=== PATIENT | female | born 1935 | race Caucasian/White ===

== ENCOUNTER 2017-07-15 09:56 | Emergency (ER) | payer MEDICARE, BC ==
[~2017-07-15] VITALS: Ht 160 cm; Wt 61.0 kg
[~2017-07-15 09:56] MED LIST: KEFLEX500 MG PO; NO
[2017-07-15 13:38] LABS: URINE BILIRUBIN - DIPSTICK NEGATIVE (NEGATIVE); URINE BLOOD DIPSTICK NEGATIVE (NEGATIVE); URINE COLOR YELLOW; URINE GLUCOSE - DIPSTICK NEGATIVE (NEGATIVE); URINE KETONE TRACE mg/dL (NEGATIVE); URINE LEUK ESTERASE NEGATIVE (NEGATIVE); URINE NITRITE - DIPSTICK NEGATIVE (Negative); URINE PROTEIN - DIPSTICK NEGATIVE (NEG-TRACE); URINE UROBILINOGEN - DIPSTICK 0.2 E.U./dL (0.2)
[2017-07-15 13:39] LABS: URINE CLARITY HAZY
[2017-07-15 13:53] VITALS: BP 132/84
[2017-07-15] MEDS ORDERED: ULTRAM50 M1 PO (13:55)
== END 2017-07-15 14:10 | disposition home or self-care (01) ==
LOC: ED 09:56
PROVIDERS: Emergency Medicine
PROC: 0RSKXZZ Reposition Left Shoulder Joint, External Approach (ICD-10-PCS; principal; 2017-07-15)
DX: S00.93XA Contusion of unspecified part of head, initial encounter (principal); S42.292A Other displaced fracture of upper end of left humerus, initial encounter for closed fracture; W18.39XA Other fall on same level, initial encounter; Y93.01 Activity, walking, marching and hiking; Y92.830 Public park as the place of occurrence of the external cause

== ENCOUNTER 2017-07-24 12:22 | Inpatient (IN) | payer MEDICARE, BC ==
[~2017-07-24] VITALS: Ht 160 cm; Wt 62.5 kg
[~2017-07-24 12:22] MED LIST changes: +ASPIRIN81 MG PO; +CALCIUM + D600 MG PO; +FLAX PO; +GARLIC1000 MG PO; +MSM1000 MG PO; +NIACIN500 M5 PO; +RED YEAST600 MG PO; +TYLENOL500 MG PO; +ULTRAM50 M1 PO; +VITAMIN C1000 MG PO
[2017-07-28] VITALS (8 sets, daily range): BP systolic 96–160; BP diastolic 47–76
[2017-07-28 10:19] LABS: ACT PARTIAL THROMBO TIME 24.3 SECONDS (20.0-32.5); PROTHROMBIN TIME 10.7 SECONDS (9.0-12.5)
[2017-07-29 04:45] VITALS: BP 125/66
[2017-07-29 08:00] VITALS: BP 164/72
[2017-07-29 09:17] LABS: HEMATOCRIT 30.3 % (37.0-47.0); HEMOGLOBIN 10.1 g/dl (12.0-16.0); IMMATURE GRANULOCYTES 0.3 % (0.0-1.0); MEAN CELL VOLUME 98.4 fL CALC (80.0-100.0); MEAN CORPUSCULAR HGB 32.8 pG CALC (26.0-32.0); MEAN CORPUSCULAR HGB CONC 33.3 g/L CALC (32.0-36.0); NEUT# 10.32 thou/uL (2.00-7.15); RED BLOOD COUNT 3.08 mill/uL (4.20-5.60); RED CELL DISTRI WIDTH 13.4 % (11.5-15.5)
[2017-07-29 09:36] LABS: ANION GAP 15 (6-22 (CALC)); BUN 13 mg/dL (8-23); BUN/CREATININE RATIO 17 (12-20 (CALC)); CARBON DIOXIDE 26 mmol/l (22-30); CHLORIDE 99 mmol/l (95-108); CREATININE 0.7 mg/dL (0.5-1.0); GFR > 60 ML/MIN (>=60 (CALC)); GFR FOR AFR.AMER. > 60 ML/MIN (>=60 (CALC)); MAGNESIUM 1.7 mg/dL (1.6-2.3); POTASSIUM 3.7 mmol/l (3.5-5.1); SODIUM 136 mmol/l (137-146)
[2017-07-29 11:00] VITALS: BP 154/53
[2017-07-29] MEDS ORDERED: PERCOCET 10/31 COMBO PO (11:45)
== END 2017-07-29 13:30 | disposition home or self-care (01) | DRG 483 ==
LOC: MS2 07-28 09:00
PROVIDERS: Nurse Practitioner Family; ADMIT Orthopaedic Surgery; ATTEND Orthopaedic Surgery
PROC: 0RRK00Z Replacement of Left Shoulder Joint with Reverse Ball and Socket Synthetic Substitute, Open Approach (ICD-10-PCS; principal; 2017-07-28)
PROC: 0LS40ZZ Reposition Left Upper Arm Tendon, Open Approach (ICD-10-PCS; 2017-07-28)
DX: S42.24 4-part fracture of surgical neck of humerus (principal); S46.012A Strain of muscle(s) and tendon(s) of the rotator cuff of left shoulder, initial encounter; S46.212A Strain of muscle, fascia and tendon of other parts of biceps, left arm, initial encounter; G47.33 Obstructive sleep apnea (adult) (pediatric); J44.9 Chronic obstructive pulmonary disease, unspecified; K57.90 Diverticulosis of intestine, part unspecified, without perforation or abscess without bleeding; E78.5 Hyperlipidemia, unspecified; M19.012 Primary osteoarthritis, left shoulder; W18.39XA Other fall on same level, initial encounter; Y93.89 Activity, other specified
CPT/HCPCS: J2710

== ENCOUNTER 2017-10-09 11:41 | Emergency (ER) | payer OTHER, MEDICARE, BC ==
[~2017-10-09] VITALS: Ht 160 cm; Wt 65.0 kg
[~2017-10-09 11:41] MED LIST changes: +PERCOCET 10/31 COMBO PO
[2017-10-09 13:06] LABS: IMMATURE GRANULOCYTES 2.1 % (0.0-1.0); MEAN CELL VOLUME 93.9 fL CALC (80.0-100.0); MEAN CORPUSCULAR HGB 31.4 pG CALC (26.0-32.0); MEAN CORPUSCULAR HGB CONC 33.4 g/L CALC (32.0-36.0); NEUT# 5.17 thou/uL (2.00-7.15); RED BLOOD COUNT 3.95 mill/uL (4.20-5.60); RED CELL DISTRI WIDTH 13.7 % (11.5-15.5)
[2017-10-09 13:16] LABS: ALBUMIN 4.1 g/dL (3.2-5.0); ALKALINE PHOSPHATASE 88 u/l (38-126); ANION GAP 15 (6-22 (CALC)); BILIRUBIN, TOTAL 0.4 mg/dL (0.0-1.4); BUN 14 mg/dL (8-23); BUN/CREATININE RATIO 21 (12-20 (CALC)); CARBON DIOXIDE 26 mmol/l (22-30); CHLORIDE 103 mmol/l (95-108); CREATININE 0.7 mg/dL (0.5-1.0); GFR > 60 ML/MIN (>=60 (CALC)); GFR FOR AFR.AMER. > 60 ML/MIN (>=60 (CALC)); POTASSIUM 3.9 mmol/l (3.5-5.1); SGOT/AST 34 u/l (9-36); SGPT/ALT 42 u/l (11-66); SODIUM 140 mmol/l (137-146); TOTAL PROTEIN 7.1 g/dL (6.3-8.2)
[2017-10-09 13:45] LABS: HEMATOCRIT 37.1 % (37.0-47.0); HEMOGLOBIN 12.4 g/dl (12.0-16.0)
[2017-10-09 14:40] LABS: URINE BILIRUBIN - DIPSTICK NEGATIVE (NEGATIVE); URINE BLOOD DIPSTICK NEGATIVE (NEGATIVE); URINE COLOR YELLOW; URINE GLUCOSE - DIPSTICK NEGATIVE (NEGATIVE); URINE KETONE NEGATIVE (NEGATIVE); URINE LEUK ESTERASE NEGATIVE (Negative); URINE NITRITE - DIPSTICK NEGATIVE (Negative); URINE PH 7.5 (4.5-8.0); URINE PROTEIN - DIPSTICK NEGATIVE (NEG-TRACE); URINE SPECIFIC GRAVITY 1.015; URINE UROBILINOGEN - DIPSTICK 0.2 E.U./dL (0.2)
[2017-10-09 14:42] LABS: URINE CLARITY SL CLOUDY
[2017-10-09 14:43] VITALS: BP 201/88
== END 2017-10-09 14:44 | disposition short-term general hospital (02) | DRG 999 ==
LOC: ED 11:41
PROVIDERS: Emergency Medicine
DX: S02.19XA Other fracture of base of skull, initial encounter for closed fracture (principal); S52.502A Unspecified fracture of the lower end of left radius, initial encounter for closed fracture; S02.40FA Zygomatic fracture, left side, initial encounter for closed fracture; S80.212A Abrasion, left knee, initial encounter; I10 Essential (primary) hypertension; V03.00XA Pedestrian on foot injured in collision with car, pick-up truck or van in nontraffic accident, initial encounter; Y92.481 Parking lot as the place of occurrence of the external cause

== ENCOUNTER 2022-07-12 09:51 | Emergency (ER) | payer MEDICARE, BC ==
[~2022-07-12] VITALS: Ht 160 cm; Wt 60.0 kg
[2022-07-12] VITALS (22 sets, daily range): BP systolic 92–222; BP diastolic 40–101
[2022-07-12 14:51] LABS: BASO% 0.3 % (0-3); EOS% 1.2 % (0-8); HEMATOCRIT 40.9 % (37.0-47.0); HEMOGLOBIN 13.2 g/dl (12.0-16.0); IMMATURE GRANULOCYTES 0.1 % (0.0-5.0); LYMPH% 14.6 % (15-41); MEAN CELL VOLUME 96.9 fL CALC (80.0-100.0); MEAN CORPUSCULAR HGB 31.3 pG CALC (26.0-32.0); MEAN CORPUSCULAR HGB CONC 32.3 g/dL CAL (32.0-36.0); MONO% 9.1 % (2-13); NEUT# 5.8 thou/uL (2.00-7.15); NEUT% 74.7 % (42-76); RED BLOOD COUNT 4.22 mill/uL (4.20-5.60); RED CELL DISTRI WIDTH 12.9 % (11.5-15.5)
[2022-07-12 15:03] LABS: ALKALINE PHOSPHATASE 78 u/l (38-126); ANION GAP 8 (6-22 (CALC)); BILIRUBIN, TOTAL 0.2 mg/dL (0.02-1.3); BUN 18 mg/dL (8-23); BUN/CREATININE RATIO 27 (12-20 (CALC)); CARBON DIOXIDE 32 mmol/l (22-30); CHLORIDE 99 mmol/l (95-108); CREATININE 0.7 mg/dL (0.5-1.0); GFR FOR AFR.AMER. > 60 ML/MIN (>=60 (CALC)); GFR OTHER RACES > 60 ML/MIN (>=60 (CALC)); POTASSIUM 3.7 mmol/l (3.5-5.1); SGOT/AST 33 u/l (9-36); SODIUM 135 mmol/l (137-146); TOTAL PROTEIN 6.9 g/dL (6.3-8.2)
== END 2022-07-12 19:40 | disposition home or self-care (01) ==
LOC: ED 09:51
PROVIDERS: Emergency Medicine
DX: K59.00 Constipation, unspecified (principal)
CPT/HCPCS: Q9967

== ENCOUNTER 2024-05-04 12:45 | Emergency (ER) | payer MEDICARE, BC ==
[~2024-05-04] VITALS: Ht 160 cm; Wt 58.0 kg
[2024-05-04] VITALS (7 sets, daily range): BP systolic 152–228; BP diastolic 83–128
[2024-05-04] MEDS ORDERED: KETOROLAC TROMETHAMINE 15 MG/ML SDV IV ONE (12:55)
[2024-05-04 13:28] LABS: BASO% 0.4 % (0-3); EOS% 0.9 % (0-8); HEMATOCRIT 38.7 % (37.0-47.0); HEMOGLOBIN 12.6 g/dl (12.0-16.0); IMMATURE GRANULOCYTES 0.4 % (0.0-5.0); LYMPH% 16.2 % (15-41); MEAN CELL VOLUME 98.5 fL CALC (80.0-100.0); MEAN CORPUSCULAR HGB 32.1 pG CALC (26.0-32.0); MEAN CORPUSCULAR HGB CONC 32.6 g/dL CAL (32.0-36.0); MONO% 6.2 % (2-13); NEUT# 4.07 thou/uL (2.00-7.15); NEUT% 75.9 % (42-76); RED BLOOD COUNT 3.93 mill/uL (4.20-5.60)
[2024-05-04 13:41] LABS: ALBUMIN 3.9 g/dL (3.2-5.0); ALKALINE PHOSPHATASE 71 u/l (38-126); ANION GAP 14 (6-22 (CALC)); BILIRUBIN, TOTAL 0.5 mg/dL (0.02-1.3); BUN 23 mg/dL (8-23); BUN/CREATININE RATIO 29 (12-20 (CALC)); CARBON DIOXIDE 29 mmol/l (22-30); CHLORIDE 100 mmol/l (95-108); CREATININE 0.8 mg/dL (0.5-1.0); ESTIMATED GFR 70 ML/MIN (>=90 (CALC)); MAGNESIUM 2.1 mg/dL (1.6-2.3); POTASSIUM 3.9 mmol/l (3.5-5.1); SGOT/AST 32 u/l (9-36); SODIUM 139 mmol/l (137-146); TOTAL PROTEIN 6.5 g/dL (6.3-8.2)
[2024-05-04] MEDS ORDERED: ONDANSETRON HCl 4 MG/2 ML SDV IV ONE (16:00)
[2024-05-04] MEDS ORDERED: MORPHINE SULFATE 4 MG/ML VIAL IV ONE (16:00)
== END 2024-05-04 16:20 | disposition short-term general hospital (02) ==
LOC: ED 12:45
PROVIDERS: Nurse Practitioner
DX: S72.002A Fracture of unspecified part of neck of left femur, initial encounter for closed fracture (principal); S32.592A Other specified fracture of left pubis, initial encounter for closed fracture; W18.39XA Other fall on same level, initial encounter
CPT/HCPCS: J1885; J2405